=== PATIENT | male | born 1935 | race Caucasian/White ===

== ENCOUNTER 2018-03-14 14:58 | Inpatient (IN) ==
[2018-03-14] MEDS ORDERED: hydrALAZINE 20 MG/ML VIAL IV ONE (15:07)
[2018-03-14 15:48] LABS: Basophils # (Auto) 0.1 K/mcL (0.0-0.3); Basophils % (Auto) 0.6 % (0.0-2.0); Eosinophils # (Auto) 0.3 K/mcL (0.0-0.7); Eosinophils % (Auto) 2.9 % (0.0-7.0); Granulocytes % (Auto) 76.1 % (38.0-78.0); Lymphocytes # (Auto) 1.2 K/mcL (1.5-4.8); Lymphocytes % (Auto) 11.2 % (15.5-49.0); Mean Corpuscular HGB Conc 33.1 g/dL (31.0-36.0); Mean Corpuscular Hemoglobin 31.1 pg (26.0-34.0); Monocytes % (Auto) 9.2 % (1.0-12.0); Platelet Count 246 K/mcL (140-440); RBC 4.67 M/mcL (4.50-5.90); Red Cell Distribution Width 13.1 % (11.5-14.5)
[2018-03-14] MEDS ORDERED: SPIRONOLACTONE 25 MG TABLET PO ONE (16:04)
--- NOTE | 2018-03-14 16:04 | Emergency Department Note ---
General Adult HPI - General Chief complaint: Blood Pressure Problem Stated complaint: blood pressure problem Time Seen by Provider: 03/14/18 15:06 Source: patient Mode of arrival: ambulatory Limitations: no limitations - History of Present Illness HPI Narrative: 83-year-old male presents after being sent to the ER by his primary care provider for hypertension. He had blood pressures in Dr. Allison's office of 235/160. He denies any complaints. No headache. No change in vision. No chest pain or shortness of breath. No difficulty breathing. Patient states "I just want my medications changed to control my blood pressure ". States that he was on Norvasc for a few weeks which was helping control his blood pressure but then they had to take him off of the Norvasc about the middle of January due to pedal edema caused by the Norvasc. States since then he has been monitoring his blood pressure at home and is continued to rise and he needs better control of his blood pressure. He has had some kidney cysts in the past and there is question of whether or not his kidneys are contributing to hypertension. Dr. Allison would like us to get an ultrasound of the kidneys if possible. Associated symptoms: Denies: confusion, chest pain, cough, diaphoresis, fever/ chills, headaches, loss of appetite, malaise, nausea/vomiting, shortness of breath, syncope, weakness - Related Data Home Medications Medication Instructions Recorded Confirmed calcium carbonate 500 mg calcium 500 mg PO QDAY tab 05/13/15 03/14/18 (1,250 mg) tablet omega-3 fatty acids 300 mg capsule 600 mg PO QDAY 05/13/15 03/14/18 ferrous sulfate 325 mg (65 mg 325 mg PO QDAY 11/11/16 03/14/18 iron) tablet aspirin 81 mg tablet,delayed 81 mg PO .QOD tab 09/16/17 03/14/18 release Previous Rx's Medication Instructions Recorded levothyroxine 150 mcg tablet 150 mcg PO QDAY #90 tab 05/28/17 fexofenadine 180 mg tablet 180 mg PO QDAY #90 tab 10/07/17 simvastatin 5 mg tablet 5 mg PO QPM #90 tab 11/11/17 pantoprazole 40 mg tablet,delayed 40 mg PO QDAY #90 tab 12/03/17 release olmesartan 40 mg tablet 40 mg PO QDAY #90 tab 02/04/18 carvedilol 25 mg tablet 12.5 mg PO BID #90 tab 02/15/18 Allergies Allergy/AdvReac Type Severity Reaction Status Date / Time KEENAN Inhibitors AdvReac Unknown Unknown Verified 03/14/18 15:01 venom-honey bee AdvReac Unknown Unknown Verified 03/14/18 15:01 [bee venom (honey bee)] Review of Systems All systems ED: reviewed and negative except as stated. Past Medical History - Past Medical History [facility] Narrative: Medical History (Last Reviewed 02/04/18 @ 11:10 by Tyler Allison MD) Adenocarcinoma of transverse colon (Chronic) Anemia (Chronic) Urticaria (Resolved) Breast mass in male (Chronic) Vitreous degeneration (Chronic) Schatzki's ring (Chronic) Bursitis, subacromial (Resolved 11/13/14) PVD (peripheral vascular disease) (Chronic 06/01/13) Pseudophakia (Chronic) Hx of malignant neoplasm of prostate (Chronic) Hx of skin malignancy (Resolved) Osteoarthritis (Chronic) Onychomycosis (Chronic 06/01/13) Macular degeneration (Chronic) Lung nodule, solitary (Chronic) Leukocytosis (Chronic) Ischemic heart disease, chronic (Chronic) Injury, shoulder and upper arm (Resolved 10/17/07) Hypothyroidism (acquired) (Chronic) Hypocalcemia (Chronic) Hypertension, essential (Chronic) Hiatal hernia (Chronic) Hemoptysis (Resolved 12/31/12) Hematuria, microscopic (Chronic 12/14/13) Hearing loss (Chronic) Gastroesophageal reflux (Chronic) Benign gastric polyp (Chronic) Pneumonia (Resolved 08/28/13) Fatigue (Chronic) Dyspnea and respiratory abnormality (Chronic) Dysphagia (Chronic 01/05/13) Dupuytrens contracture (Chronic) Duodenitis without hemorrhage (Chronic) Diverticulum of bladder (Chronic) Genital disorder, male (Chronic) Chronic obstructive pulmonary disease (Chronic 07/21/11) Bronchitis (Chronic 01/08/11) Breast pain (Resolved) Bradycardia (Chronic) 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 urinary tract symptoms (Chronic 12/14/13) 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) Blepharitis (Chronic) Basal cell carcinoma of skin (Resolved) Aortic stenosis (Chronic 07/25/13) Colon adenocarcinoma (Chronic) Past Surgical History (Last Reviewed 02/04/18 @ 11:10 by Tyler Allison MD) Hx of thumb surgery (Resolved) History of thoracotomy (Resolved) History of prostate surgery (Resolved) Status post nasal surgery (Resolved) Hx of lymph node biopsy (Resolved) Hx of esophagogastroduodenoscopy (Resolved 01/05/13) Hx of colonoscopy (Resolved) Hx of cardiac catheterization (Resolved 07/04/13) Hx of cataract surgery (Resolved 06/01/12) History of bronchoscopy (Resolved 05/11/11) Hx of breast biopsy (Resolved) Hx of basal cell carcinoma excision (Resolved) Hx of aortic valve replacement (Resolved 07/25/13) Heart valve replaced (Resolved 07/25/13) - Social History smoking status: Never smoker Alcohol use: Reports: None Drug use: Reports: none Physical Exam Limitations: no limitations General appearance: alert, in no apparent distress Head: atraumatic, normocephalic, normal inspection Eye: Present: normal appearance. Absent: conjunctival injection ENT: normal exam, normal oropharynx, mucous membranes moist, normal external ear exam Neck: Present: normal inspection, trachea midline. Absent: tenderness, lymphadenopathy Chest: Present: normal inspection, symmetric chest wall rise Respiratory: Present: normal lung sounds bilaterally. Absent: respiratory distress, rales/crackles, accessory muscle use Cardiovascular: Present: regular rate, normal heart sounds, other (Hypertensive) Extremities: Present: normal inspection, normal capillary refill. Absent: pedal edema Neurological: Present: alert, oriented X3 Psychiatric: Present: normal affect, normal mood Skin: Present: warm, dry, intact, normal color Course Course Narrative: Patient continues to have hypertension despite multiple doses of IV medication and some oral Spironolactone. At 1850 but he could did call the transfer center at [facility] to see if we get this patient admitted as there was no beds available here. The hospitalist from [facility] to call back and agrees to accept the patient. However within minutes of that bed unexpectedly became available here at [facility]. Dr. Olvera, the hospitalist agrees to accept the patient here. Vital Signs Temperature 97.5 F 03/14/18 14:59 Pulse Rate 61 03/14/18 14:59 Respiratory Rate 20 03/14/18 14:59 Blood Pressure 248/111 03/14/18 14:59 Pulse Oximetry (%) 98 03/14/18 14:59 Temperature 97.5 F 03/14/18 14:59 Pulse Rate 80 03/14/18 18:21 Respiratory Rate 16 03/14/18 18:21 Blood Pressure 170/94 03/14/18 18:20 Pulse Oximetry (%) 97 03/14/18 18:21 Medical Decision Making - Lab Data Result diagrams: 03/14/18 15:17 03/14/18 15:17 Lab Results 03/14/18 03/14/18 03/14/18 Range/Units 15:17 15:17 15:17 WBC 10.8 (4.5-11.0) K/mcL RBC 4.67 (4.50-5.90) M/mcL Hgb 14.5 (13.5-16.5) g/dL Hct 43.9 (41.0-55.0) % MCV 94.0 (80.0-100.0) fL MCH 31.1 (26.0-34.0) pg MCHC 33.1 (31.0-36.0) g/dL RDW 13.1 (11.5-14.5) % Plt Count 246 (140-440) K/mcL MPV 8.1 (7.4-10.4) fL Gran % 76.1 (38.0-78.0) % Lymph % (Auto) 11.2 L (15.5-49.0) % Nobles % (Auto) 9.2 (1.0-12.0) % Eos % (Auto) 2.9 (0.0-7.0) % Baso % (Auto) 0.6 (0.0-2.0) % Gran # 8.2 H (1.8-8.0) K/mcL Lymph # (Auto) 1.2 L (1.5-4.8) K/mcL Nobles # (Auto) 1.0 H (0.1-0.9) K/mcL Eos # (Auto) 0.3 (0.0-0.7) K/mcL Baso # (Auto) 0.1 (0.0-0.3) K/mcL Sodium 143 (133-145) mmol/L Potassium 4.3 (3.3-5.1) mmol/L Chloride 101 (96-108) mmol/L Carbon Dioxide 26 (22-30) mmol/L Anion Gap 16.0 (8-16) BUN 18 (8-23) mg/dl Creatinine 1.4 H (0.7-1.2) mg/dl GFR Calculation 46 Glucose 87 (70-105) mg/dL Calcium 9.4 (8.6-10.4) mg/dl Total Bilirubin 0.4 (0.0-1.0) mg/dL AST 18 (0-37) U/l ALT 12 (0-40) U/l Alkaline Phosphatase 62 (39-117) U/L Troponin T < 0.01 (0-0.03) ng/ml Total Protein 7.1 (5.9-8.4) gm/dL Albumin 4.4 (3.2-5.2) gm/dL Globulin 2.7 (2.2-3.7) gm/dL Albumin/Globulin Ratio 1.6 (1.0-2.3) Urine Color Urine Appearance Urine pH (5.0-9.0) Ur Specific [place] (1.000-1.035) Urine Protein (NEG) mg/dL Urine Glucose (UA) (NEG) mg/dL Urine Ketones (NEG) mg/dL Urine Occult Blood (<0.03) mg/dL Urine Nitrate (NEG) Urine Bilirubin (NEG) mg/dL Urine Urobilinogen (NEG) mg/dL Ur Leukocyte Esterase (NEG) /uL Urine RBC (0-1) /hpf Urine WBC (0-4) /hpf Ur Squamous Epith Cells (0-4) /hpf Urine Bacteria (0) /hpf Ur Culture Indicated? 03/14/18 Range/Units 15:50 WBC (4.5-11.0) K/mcL RBC (4.50-5.90) M/mcL Hgb (13.5-16.5) g/dL Hct (41.0-55.0) % MCV (80.0-100.0) fL MCH (26.0-34.0) pg MCHC (31.0-36.0) g/dL RDW (11.5-14.5) % Plt Count (140-440) K/mcL MPV (7.4-10.4) fL Gran % (38.0-78.0) % Lymph % (Auto) (15.5-49.0) % Nobles % (Auto) (1.0-12.0) % Eos % (Auto) (0.0-7.0) % Baso % (Auto) (0.0-2.0) % Gran # (1.8-8.0) K/mcL Lymph # (Auto) (1.5-4.8) K/mcL Nobles # (Auto) (0.1-0.9) K/mcL Eos # (Auto) (0.0-0.7) K/mcL Baso # (Auto) (0.0-0.3) K/mcL Sodium (133-145) mmol/L Potassium (3.3-5.1) mmol/L Chloride (96-108) mmol/L Carbon Dioxide (22-30) mmol/L Anion Gap (8-16) BUN (8-23) mg/dl Creatinine (0.7-1.2) mg/dl GFR Calculation Glucose (70-105) mg/dL Calcium (8.6-10.4) mg/dl Total Bilirubin (0.0-1.0) mg/dL AST (0-37) U/l ALT (0-40) U/l Alkaline Phosphatase (39-117) U/L Troponin T (0-0.03) ng/ml Total Protein (5.9-8.4) gm/dL Albumin (3.2-5.2) gm/dL Globulin (2.2-3.7) gm/dL Albumin/Globulin Ratio (1.0-2.3) Urine Color Straw Urine Appearance Clear Urine pH 7.0 (5.0-9.0) Ur Specific [place] 1.010 (1.000-1.035) Urine Protein 30 A (NEG) mg/dL Urine Glucose (UA) Negative (NEG) mg/dL Urine Ketones Neg (NEG) mg/dL Urine Occult Blood 0.2 A (<0.03) mg/dL Urine Nitrate Neg (NEG) Urine Bilirubin Neg (NEG) mg/dL Urine Urobilinogen Neg (NEG) mg/dL Ur Leukocyte Esterase Neg (NEG) /uL Urine RBC 24 H (0-1) /hpf Urine WBC < 1 (0-4) /hpf Ur Squamous Epith Cells < 1 (0-4) /hpf Urine Bacteria 0 (0) /hpf Ur Culture Indicated? No Disposition Pt seen by SEALING AND CANCELING MACHINE OPERATOR/PA only: No Clinical Impression: Hypertensive urgency Disposition: Xfer As Inpt (TS) Condition: Fair Referrals: Tyler Allison MD [Primary Care Provider] - Time of Disposition: 19:50
--- NOTE | 2018-03-14 16:12 | Cat Scan Report ---
CLINICAL INFORMATION: Severe hypertension COMPARISON: None. TECHNIQUE: Axial noncontrast-enhanced images through the brain. FINDINGS: On axial image 25/64 there is increased density in the right thalamus as compared to the left. This is identified only on this image. This is probably artifactual. Short-term follow-up examination is recommended. Cerebral hemispheres are otherwise negative. No other focal intra-axial attenuation abnormality or localized mass effect. There is mild age-appropriate atrophy. Periventricular white matter is unremarkable. Brainstem and cerebellum are negative. No focal intra-axial abnormalities. No extra-axial, intracranial abnormality. No subdural hematoma. No subarachnoid hemorrhage. Basilar cisterns are normal. No calvarial lesions. No lytic lesion. No fracture. Temporal bones are negative. IMPRESSION: 1. Increased density in the right thalamus seen only on one image. Appearance is most consistent with artifact. Short-term follow-up recommended 2. Otherwise negative examination The exam was performed using radiation dose optimization techniques including, but not limited to, automated exposure control, adjustment of the mA and/or kV according to patient size and use of iterative reconstruction technique. Interpreted and Authenticated by: Harris Read 03/14/18
[2018-03-14 16:32] LABS: ALT/SGPT 12 U/l (0-40); Albumin 4.4 gm/dL (3.2-5.2); Albumin/Globulin Ratio 1.6 (1.0-2.3); Alkaline Phosphatase 62 U/L (39-117); Blood Urea Nitrogen 18 mg/dl (8-23)
[2018-03-14 16:51] LABS: Appearance,Urine CLEAR; Bacteria,Urine 0 /hpf (0); Bilirubin,Urine NEG (NEG); Color,Urine STRAW; Glucose,Urine (UA) NEGATIVE (NEG); Leukocyte Esterase,Urine NEG /uL (NEG); Protein,Urine 30 mg/dL (NEG); Urine Blood 0.2 mg/dL (<0.03); Urine RBC 24 /hpf (0-1); Urine Squamous Epithelial Cell < 1 /hpf (0-4); Urine WBC < 1 /hpf (0-4); Urobilinogen,Urine NEG (NEG)
--- NOTE | 2018-03-14 16:57 | Ultrasound Report ---
CLINICAL INFORMATION: Hypertension TECHNIQUE: Grayscale and color flow Doppler spectral imaging COMPARISON: Renal ultrasound dated 05/26/2016. CT scan dated 06/21/2015 FINDINGS: Negative gallbladder. No cholelithiasis. No gallbladder wall thickening. No pericholecystic fluid. No dilated bile ducts. Common bile duct measures 5 mm. Liver measures approximately 12.6 cm. Liver contour is slightly irregular. No focal mass. There is no ascites. Spleen is negative. No splenomegaly. Normal hepatopedal portal venous flow. Visualized portions of the pancreas are negative. The entire gland is not imaged. Abdominal aorta and inferior vena cava are negative. Right kidney measures 14.4 x 6.8 x 7.4 cm. There is a large right renal cyst. This measures 11.7 x 8.7 x 5.4 cm. There are smaller right renal cyst. No solid mass. No hydronephrosis. Left kidney measures 14.9 x 6.5 x 6 x 1 cm. There is a dominant simple cyst. This measures 12.5 x 14.0 x 13.6 cm. There are smaller simple cyst. No solid mass. No hydronephrosis. These large renal cysts are unchanged. IMPRESSION: 1. Large bilateral simple renal cysts. No solid mass. No hydronephrosis 2. No interval change since 05/26/2016 Interpreted and Authenticated by: Harris Read 03/14/18
[2018-03-14] MEDS ORDERED: LABETALOL HCL 20 MG/4 ML SYRINGE IV ONE (17:52)
[2018-03-14] MEDS ORDERED: niCARdipine 25 MG in 0.9 % SODIUM CHLORIDE 240 ML IV SCH (19:45)
--- NOTE | 2018-03-14 20:39 | Internal Med History&Physical ---
Medical - H&P: HPI Patient information: Note initiated : 03/14/18 at 8:35 pm Service Date, if different from initiated Date: [] Patient: Juan Valdez a 83 y/o M admitted on for blood pressure problem. Chief Complaint: [] History of present illness: Mr. Valdez is a 83 year old M With history of hypertension who presents from Dr. Allison's office for hypertension. Patient states that his blood pressure medications were adjusted in January. He states that he was on Norvasc Coreg and I believe valsartan. Patient is a poor historian as to his medications but it sounds like he is on Norvasc 5 mg that was causing pedal edema. Thus the Norvasc was stopped his Coreg was increased to 12.5 twice daily sounds like he was only taking it once a day prior to that and his valsartan was switched to olmesartan. He has been measuring his blood pressure since then had a follow-up appointment Dr. Allison today he was found to have systolics of 235 with a diastolic of 160 in the office. Patient states when he was on the Norvasc in January his blood pressure was on the lower side and he has been having issues ever since the change. He does note that his pedal edema has gone away since stopping the Norvasc. He denies any headache visual changes dizziness lightheadedness shortness of breath or chest pain. He is asymptomatic in the ER with blood pressures in the ER of 248/111 on presentation he received oral and IV labetalol including 20 mg of IV labetalol he received IV hydralazine and Spironolactone with temporary improvement and then increase in blood pressure again with systolic of 200. And then was put on nicardipine drip with improvement. Urinalysis just shows protein. Renal ultrasound bilaterally to show mark renal cyst. A CT brain was unremarkable. Review of Systems: denies headache/fever/chills/nausea/vomiting/chest or abdominal pain/cough/ dyspnea/diarrhea. Remaining 10 point review of systems reviewed negative Medical - H&P: PMH Medical history: Medical History (Last Reviewed 02/04/18 @ 11:10 by Tyler Allison MD) Adenocarcinoma of transverse colon (Chronic) Anemia (Chronic) Urticaria (Resolved) Breast mass in male (Chronic) Vitreous degeneration (Chronic) Schatzki's ring (Chronic) Bursitis, subacromial (Resolved 11/13/14) PVD (peripheral vascular disease) (Chronic 06/01/13) Pseudophakia (Chronic) Hx of malignant neoplasm of prostate (Chronic) Hx of skin malignancy (Resolved) Osteoarthritis (Chronic) Onychomycosis (Chronic 06/01/13) Macular degeneration (Chronic) Lung nodule, solitary (Chronic) Leukocytosis (Chronic) Ischemic heart disease, chronic (Chronic) Injury, shoulder and upper arm (Resolved 10/17/07) Hypothyroidism (acquired) (Chronic) Hypocalcemia (Chronic) Hypertension, essential (Chronic) Hiatal hernia (Chronic) Hemoptysis (Resolved 12/31/12) Hematuria, microscopic (Chronic 12/14/13) Hearing loss (Chronic) Gastroesophageal reflux (Chronic) Benign gastric polyp (Chronic) Pneumonia (Resolved 08/28/13) Fatigue (Chronic) Dyspnea and respiratory abnormality (Chronic) Dysphagia (Chronic 01/05/13) Dupuytrens contracture (Chronic) Duodenitis without hemorrhage (Chronic) Diverticulum of bladder (Chronic) Genital disorder, male (Chronic) Chronic obstructive pulmonary disease (Chronic 07/21/11) Bronchitis (Chronic 01/08/11) Breast pain (Resolved) Bradycardia (Chronic) 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 urinary tract symptoms (Chronic 12/14/13) 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) Blepharitis (Chronic) Basal cell carcinoma of skin (Resolved) Aortic stenosis (Chronic 07/25/13) Colon adenocarcinoma (Chronic) Past Surgical History (Last Reviewed 02/04/18 @ 11:10 by Tyler Allison MD) Hx of thumb surgery (Resolved) History of thoracotomy (Resolved) History of prostate surgery (Resolved) Status post nasal surgery (Resolved) Hx of lymph node biopsy (Resolved) Hx of esophagogastroduodenoscopy (Resolved 01/05/13) Hx of colonoscopy (Resolved) Hx of cardiac catheterization (Resolved 07/04/13) Hx of cataract surgery (Resolved 06/01/12) History of bronchoscopy (Resolved 05/11/11) Hx of breast biopsy (Resolved) Hx of basal cell carcinoma excision (Resolved) Hx of aortic valve replacement (Resolved 07/25/13) Heart valve replaced (Resolved 07/25/13) Family History (Last Reviewed 02/04/18 @ 11:10 by Tyler Allison MD) Father Essential hypertension Cardiac disease, Onset Age: 79 Mother of unknown cause, Onset Age: 79 Social History (Last Updated 02/11/18 @ 15:47 by Tyler Allison MD) Denies alcohol or smoking ambulates independent of any assist devices. Lives at home by himself Medical - H&P: Meds Home Medications Medication Instructions Recorded Confirmed Type calcium carbonate 500 mg calcium 500 mg PO QDAY tab 05/13/15 03/14/18 History (1,250 mg) tablet omega-3 fatty acids 300 mg capsule 600 mg PO QDAY 05/13/15 03/14/18 History ferrous sulfate 325 mg (65 mg 325 mg PO QDAY 11/11/16 03/14/18 History iron) tablet levothyroxine 150 mcg tablet 150 mcg PO QDAY #90 tab 05/28/17 03/14/18 Rx aspirin 81 mg tablet,delayed 81 mg PO .QOD tab 09/16/17 03/14/18 History release fexofenadine 180 mg tablet 180 mg PO QDAY #90 tab 10/07/17 03/14/18 Rx simvastatin 5 mg tablet 5 mg PO QPM #90 tab 11/11/17 03/14/18 Rx pantoprazole 40 mg tablet,delayed 40 mg PO QDAY #90 tab 12/03/17 03/14/18 Rx release olmesartan 40 mg tablet 40 mg PO QDAY #90 tab 02/04/18 03/14/18 Rx carvedilol 25 mg tablet 12.5 mg PO BID #90 tab 02/15/18 03/14/18 Rx Allergies Allergy/AdvReac Type Severity Reaction Status Date / Time KEENAN Inhibitors AdvReac Unknown Unknown Verified 03/14/18 15:01 venom-honey bee AdvReac Unknown Unknown Verified 03/14/18 15:01 [bee venom (honey bee)] Medical - H&P: Exam - Constitutional Vitals: Temp Pulse Resp BP Pulse Ox 97.5 F 80 16 170/94 97 03/14/18 14:59 03/14/18 18:21 03/14/18 18:21 03/14/18 18:20 03/14/18 18:21 Exam: General: Alert, Awake, No acute Distress HEENT: EOMI, neck supple, normocephalic atraumatic, pupils equal round reactive light CV: RRR, 2/6 SM, normal s1/s2 Pulm: Clear b/l, no wheezing/rhonchi/rales Abd: soft, nontender, +BS x4 Ext: no clubbing/cyanosis/edema Neuro: Alert, no focal deficits, moves all extremities Skin: warm/dry Medical - H&P: Reslt - Labs CBC & Chem 7: 03/14/18 15:17 03/14/18 15:17 Labs: Short CBC 03/14/18 Range/Units 15:17 WBC 10.8 (4.5-11.0) K/mcL Hgb 14.5 (13.5-16.5) g/dL Hct 43.9 (41.0-55.0) % Plt Count 246 (140-440) K/mcL BMP 03/14/18 15:17 Sodium 143 Potassium 4.3 Chloride 101 Carbon Dioxide 26 BUN 18 Creatinine 1.4 H Glucose 87 Calcium 9.4 Cardiac Enzymes 03/14/18 Range/Units 15:17 Troponin T < 0.01 (0-0.03) ng/ml Liver Function 03/14/18 Range/Units 15:17 Total Bilirubin 0.4 (0.0-1.0) mg/dL AST 18 (0-37) U/l ALT 12 (0-40) U/l Alkaline Phosphatase 62 (39-117) U/L Albumin 4.4 (3.2-5.2) gm/dL Urine 03/14/18 Range/Units 15:50 Urine Color Straw Urine Appearance Clear Urine pH 7.0 (5.0-9.0) Ur Specific [place] 1.010 (1.000-1.035) Urine Protein 30 A (NEG) mg/dL Urine Glucose (UA) Negative (NEG) mg/dL Medical - H&P: A/P - Narrative A/P Narrative: A: *Hypertensive urgency (h/o HTN): With significantly elevated blood pressure surprisingly asymptomatic at this time -MAP on admit 150 -Since medication adjustment has been labile *History of CKD stage III (base ~Cr 1.4): Follows with Dr. Bowman *Hypothyroidism *GERD *Aortic valve replacement with bovine valve: P: -Nicardipine drip started, will titrate to map of 100 at this point -Restart his Coreg and olmesartan, clarified medications, and adjust blood pressure medications with additions as necessary -TSH pending, renin/aldosterone/a.m. cortisol pending -We will also check renal artery ultrasound -Monitor closely for any complications - - -ppx: lovenox/home ppi
[2018-03-14 20:55] LABS: Free T4 (Free Thyroxine) 1.52 ng/dl (0.7-1.7)
[2018-03-14] MEDS ORDERED: ONDANSETRON 4 MG/2 ML VIAL IV PRN (21:12)
[2018-03-14] MEDS: niCARdipine 25 MG in 0.9 % SODIUM CHLORIDE 240 ML IV SCH (21:15)
[2018-03-14] MEDS: ACETAMINOPHEN 325 MG TABLET PO PRN (22:51)
[2018-03-14] MEDS: 0.9 % SODIUM CHLORIDE 10 ML SYRINGE IV SCH (22:59)
--- NOTE | 2018-03-14 22:59 | Emergency Department Note ---
ED Note Addendum Note Addendum: I saw this patient with Jordyn SCHERER. I agree with her evaluation management documentation. In particular this patient was sent over from Dr. Allison's office for asymptomatic hypertensive urgency. Workup essentially negative here but blood pressures were very difficult to control despite trying hydralazine labetalol and spironolactone. Recommended admission for further control of his blood pressure with IV medicines
[2018-03-15] MEDS: niCARdipine 25 MG in 0.9 % SODIUM CHLORIDE 240 ML IV SCH ×5 (05:01→22:00)
[2018-03-15] MEDS: 0.9 % SODIUM CHLORIDE 10 ML SYRINGE IV SCH ×3 (05:39→22:00)
--- NOTE | 2018-03-15 07:22 | Internal Med Progress Note ---
Medical - PN: Subj Patient information: Note initiated : 03/15/18 at 7:18 am Service Date, if different from initiated Date: [] Patient: Juan Valdez a 83 y/o M admitted on 03/14/18 for blood pressure problem. Chief Complaint: [] Interval history: Mr. Valdez is a 83 year old M With history of hypertension who presents from Dr. Allison's office for hypertension. Patient states that his blood pressure medications were adjusted in January. He states that he was on Norvasc Coreg and I believe valsartan. Patient is a poor historian as to his medications but it sounds like he is on Norvasc 5 mg that was causing pedal edema. Thus the Norvasc was stopped his Coreg was increased to 12.5 twice daily sounds like he was only taking it once a day prior to that and his valsartan was switched to olmesartan. He has been measuring his blood pressure since then had a follow-up appointment Dr. Allison today he was found to have systolics of 235 with a diastolic of 160 in the office. Patient states when he was on the Norvasc in January his blood pressure was on the lower side and he has been having issues ever since the change. He does note that his pedal edema has gone away since stopping the Norvasc. He denies any headache visual changes dizziness lightheadedness shortness of breath or chest pain. He is asymptomatic in the ER with blood pressures in the ER of 248/111 on presentation he received oral and IV labetalol including 20 mg of IV labetalol he received IV hydralazine and Spironolactone with temporary improvement and then increase in blood pressure again with systolic of 200. And then was put on nicardipine drip with improvement. Urinalysis just shows protein. Renal ultrasound bilaterally to show mark renal cyst. A CT brain was unremarkable. 03/15 Poor sleep because of all the lines and wires attached to him. But did get a few hours early this morning. Otherwise no new complaints. Nicardipine drip was stopped earlier this morning with now blood pressure is creeping up to the systolics 170. Review of Systems: denies headache/visual changes/fever/chills/nausea/vomiting/chest or abdominal pain/cough/dyspnea/diarrhea. Otherwise see above. - Constitutional Vitals: Vital Signs Temp Pulse Resp BP Pulse Ox 98.3 F 61 15 137/79 96 03/15/18 06:01 03/15/18 06:01 03/15/18 06:01 03/15/18 06:01 03/15/18 06:01 Period Temp Pulse Resp BP Sys/[place] Pulse Ox Last 24 Hr 97.5 F-100.0 F 57-92 13-40 110-257/54-129 92-100 Intake and Output 03/14/18 03/15/18 03/15/18 21:59 05:59 13:59 Intake Total 372 / 372 348 / 348 Output Total 600 / 600 450 / 450 Balance -228 / -228 -102 / -102 Weight 67.812 kg Intake & Output: Intake & Output 03/14/18 03/15/18 03/15/18 21:59 05:59 13:59 Intake Total 372 / 372 348 / 348 Output Total 600 / 600 450 / 450 Balance -228 / -228 -102 / -102 Weight 67.812 kg Intake: IV 108 / 108 Cardene 25 MG In Sodium 108 / 108 Chloride 0.9% 240 ml @ 5 MG/HR 50 mls/hr IV Q5H [facility] Rx#: [id number] Oral 360 / 360 240 / 240 Output: Void Amount 600 / 600 450 / 450 Other: Meal SAndwhich, SHerbert, crackers. Percent of Meal Consumed 100% Feeding Ability Independent # Voids 1 Exam: General: Alert, Awake, No acute Distress HEENT: EOMI, neck supple, CV: RRR, 2/6 SM, normal s1/s2 Pulm: Clear b/l, no wheezing/rhonchi/rales Abd: soft, nontender, +BS x4 Ext: no clubbing/cyanosis/edema Neuro: Alert, no focal deficits, moves all extremities Skin: warm/dry Medical - PN: Obj Da - Labs CBC & Chem 7: 03/15/18 03:45 03/15/18 03:45 Labs: Abnormal Lab Results 03/14/18 03/14/18 03/14/18 15:50 15:17 15:17 Lymph % (Auto) 11.2 L Gran # 8.2 H Lymph # (Auto) 1.2 L [place] # (Auto) 1.0 H Creatinine 1.4 H Urine Protein 30 A Urine Occult Blood 0.2 A Urine RBC 24 H Meds: Medications Acetaminophen (Tylenol) 650 mg PO Q6HP PRN PRN Reason: PAIN/FEVER > 101 Last Admin: 03/14/18 22:51 Dose: 650 mg Aspirin (Aspirin) 81 mg PO Q48H [facility] Calcium Carbonate/Glycine (Oscal) 500 mg PO QDAY [facility] Carvedilol (Coreg) 12.5 mg PO BIDCC [facility] Enoxaparin Sodium (Lovenox) 40 mg SQ DAILY [facility] Nicardipine HCl 25 mg/ Sodium (Chloride) 250 mls @ 50 mls/hr IV Q5H [facility]; Protocol Last Admin: 03/15/18 05:01 Dose: Not Given Levothyroxine Sodium (Synthroid) 150 mcg PO QAMAC [facility] Olmesartan (Benicar) 40 mg PO DAILY [facility] Ondansetron HCl (Zofran) 4 mg IV Q4HP PRN PRN Reason: Nausea And Vomiting Pantoprazole Sodium (Protonix) 40 mg PO QAMAC [facility] Sodium Chloride (Saline Flush) 10 ml IV Q8 [facility] Last Admin: 03/15/18 05:39 Dose: 10 ml Medical - PN: A/P - Time Spent With Patient Total time spent is greater than 50% in coordination of care (as documented) at patient's floor/unit and/or counseling patient: - Narrative A/P Narrative: A: *Hypertensive urgency (h/o HTN): With significantly elevated blood pressure surprisingly asymptomatic on admit -MAP on admit 150 -Since medication adjustment several months ago his BP has been labile -TSH/cortisol ok *History of CKD stage III (base ~Cr 1.4-1.5): Follows with Dr. Bowman *Hypothyroidism *GERD *Aortic valve replacement with bovine valve: P: -Nicardipine drip started,titrate to map of 100 at this point, weaned off this morning. gradually bring down BP -Restarted home Coreg and olmesartan, clarify medications, and adjust blood pressure medications with additions as necessary -renin/aldosterone pending -We will also check renal artery ultrasound -Monitor closely for any complications - -ppx: lovenox/home ppi Medical - PN: Qual - VTE Deep Vein Thrombosis/Pulmonary Embolism Present on Admission: No
[2018-03-15 07:47] LABS: Basophils # (Auto) 0 K/mcL (0.0-0.3); Basophils % (Auto) 0.2 % (0.0-2.0); Eosinophils # (Auto) 0 K/mcL (0.0-0.7); Eosinophils % (Auto) 0.3 % (0.0-7.0); Granulocytes % (Auto) 83.3 % (38.0-78.0); Mean Cell Volume 93.2 fL (80.0-100.0); Mean Corpuscular HGB Conc 33.1 g/dL (31.0-36.0); Mean Corpuscular Hemoglobin 30.9 pg (26.0-34.0); Monocytes # (Auto) 1.3 K/mcL (0.1-0.9); Monocytes % (Auto) 9.2 % (1.0-12.0); Platelet Count 246 K/mcL (140-440); RBC 4.29 M/mcL (4.50-5.90); Red Cell Distribution Width 13.6 % (11.5-14.5)
[2018-03-15] MEDS ORDERED: CARVEDILOL 12.5 MG TABLET PO SCH (08:00)
[2018-03-15] MEDS ORDERED: LABETALOL 5 MG/ML ML IV PRN (08:10)
[2018-03-15 08:33] LABS: Cortisol,AM 7.4 ug/dl (6.2-19.4)
[2018-03-15 08:34] LABS: ALT/SGPT 10 U/l (0-40); Albumin 3.7 gm/dL (3.2-5.2); Albumin/Globulin Ratio 1.6 (1.0-2.3); Alkaline Phosphatase 52 U/L (39-117); Bilirubin,Direct < 0.2 mg/dL (0.0-0.3); Blood Urea Nitrogen 24 mg/dl (8-23); Gamma Glutamyl Transpeptidase 15 U/L (8-61); Uric Acid 7.2 mg/dL (2.5-8.0)
[2018-03-15] MEDS ORDERED: ASPIRIN 81 MG TAB.CHEW PO SCH (09:00)
[2018-03-15] MEDS: LABETALOL 5 MG/ML ML IV PRN ×4 (09:10→21:51)
[2018-03-15] MEDS: PANTOPRAZOLE 40 MG TABLET PO SCH (10:35)
[2018-03-15] MEDS: ENOXAPARIN 40 MG/0.4 ML SYRINGE SQ SCH (10:35)
[2018-03-15] MEDS: OLMESARTAN MEDOXOMIL 20 MG TABLET PO SCH (10:35)
[2018-03-15] MEDS: CALCIUM (OYSTER SHELL) 500 MG TABLET PO SCH (10:35)
[2018-03-15] MEDS: LEVOTHYROXINE 150 MCG TABLET PO SCH (10:36)
--- NOTE | 2018-03-15 12:09 | Ultrasound Report ---
CLINICAL INFORMATION: Hypertension TECHNIQUE: Grayscale and color flow Doppler spectral imaging COMPARISON: Renal ultrasound dated 03/14/2018. FINDINGS: There are large bilateral renal cysts. No solid mass. No hydronephrosis. No perinephric abnormality. Sonographic appearance of the kidneys is unchanged since 03/14/2018. Left renal artery is abnormal. There is velocity elevation in the proximal segment with maximum systolic flow velocity of 220 cm/s. Mid abdominal flow velocity measured 89 cm/s. Findings are consistent with greater than 50% diameter renal artery stenosis. Left renal resistive indices measure 0.70-0.72. These are slightly elevated which probably indicates medical renal disease. Right renal artery is negative. No significant velocity elevation. No right renal artery stenosis. Right renal resistive indices equal 0.66-0.76. IMPRESSION: Elevated flow velocity in the proximal left renal artery consistent with hemodynamically significant stenosis. Interpreted and Authenticated by: Harris Read 03/15/18
[2018-03-15 14:42] LABS: Band Neutrophils % 2 % (0-10); Eosinophils % (Manual) 1 % (0-7); Lymphocytes % 13 % (15-49); Monocytes % (Manual) 9 % (1-12); Platelet Estimate NORMAL (NORMAL); RBC Morphology NORMAL (NORMAL); Segmented Neutrophils % 75 % (38-78)
[2018-03-15] MEDS: CARVEDILOL 12.5 MG TABLET PO SCH ×2 (17:28→21:52)
[2018-03-15] MEDS: ACETAMINOPHEN 325 MG TABLET PO PRN (22:07)
[2018-03-16] MEDS: niCARdipine 25 MG in 0.9 % SODIUM CHLORIDE 240 ML IV SCH ×2 (02:01→06:25)
[2018-03-16] MEDS: 0.9 % SODIUM CHLORIDE 10 ML SYRINGE IV SCH ×2 (06:02→20:39)
[2018-03-16 06:58] LABS: Mean Cell Volume 93.6 fL (80.0-100.0); Mean Corpuscular HGB Conc 33.4 g/dL (31.0-36.0); Mean Corpuscular Hemoglobin 31.3 pg (26.0-34.0); Platelet Count 219 K/mcL (140-440); RBC 4.01 M/mcL (4.50-5.90); Red Cell Distribution Width 13.6 % (11.5-14.5)
--- NOTE | 2018-03-16 07:15 | Internal Med Progress Note ---
Medical - PN: Subj Patient information: Note initiated : 03/16/18 at 7:11 am Service Date, if different from initiated Date: [] Patient: Juan Valdez a 83 y/o M admitted on 03/14/18 for blood pressure problem. Chief Complaint: [] Interval history: Mr. Valdez is a 83 year old M With history of hypertension who presents from Dr. Allison's office for hypertension. Patient states that his blood pressure medications were adjusted in January. He states that he was on Norvasc Coreg and I believe valsartan. Patient is a poor historian as to his medications but it sounds like he is on Norvasc 5 mg that was causing pedal edema. Thus the Norvasc was stopped his Coreg was increased to 12.5 twice daily sounds like he was only taking it once a day prior to that and his valsartan was switched to olmesartan. He has been measuring his blood pressure since then had a follow-up appointment Dr. Allison today he was found to have systolics of 235 with a diastolic of 160 in the office. Patient states when he was on the Norvasc in January his blood pressure was on the lower side and he has been having issues ever since the change. He does note that his pedal edema has gone away since stopping the Norvasc. He denies any headache visual changes dizziness lightheadedness shortness of breath or chest pain. He is asymptomatic in the ER with blood pressures in the ER of 248/111 on presentation he received oral and IV labetalol including 20 mg of IV labetalol he received IV hydralazine and Spironolactone with temporary improvement and then increase in blood pressure again with systolic of 200. And then was put on nicardipine drip with improvement. Urinalysis just shows protein. Renal ultrasound bilaterally to show mark renal cyst. A CT brain was unremarkable. 03/15 Poor sleep because of all the lines and wires attached to him. But did get a few hours early this morning. Otherwise no new complaints. Nicardipine drip was stopped earlier this morning with now blood pressure is creeping up to the systolics 170. 03/16 Slept better last night. No new complaints no overnight events no as needed blood pressure medication since shift change yesterday. Review of Systems: denies headache/visual changes/fever/chills/nausea/vomiting/chest or abdominal pain/cough/dyspnea/diarrhea. Otherwise see above. - Constitutional Vitals: Vital Signs Temp Pulse Resp BP Pulse Ox 98.5 F 64 15 134/68 95 03/16/18 04:01 03/15/18 20:00 03/16/18 06:01 03/16/18 06:01 03/16/18 06:01 Period Temp Pulse Resp BP Sys/C[place]ona Pulse Ox Last 24 Hr 98.0 F-98.6 F 64-65 10-22 100-189/53-108 93-99 Intake and Output 03/15/18 03/16/18 03/16/18 21:59 05:59 13:59 Intake Total 240 / 240 720 / 720 Output Total 575 / 575 750 / 750 Balance -335 / -335 -30 / -30 Weight 68.901 kg Intake & Output: Intake & Output 03/15/18 03/16/18 03/16/18 21:59 05:59 13:59 Intake Total 240 / 240 720 / 720 Output Total 575 / 575 750 / 750 Balance -335 / -335 -30 / -30 Weight 68.901 kg Intake: Oral 240 / 240 720 / 720 Output: Void Amount 575 / 575 750 / 750 Other: Meal soup and crackers Percent of Meal Consumed 75% Feeding Ability Independent Urine Appearance Clear Urine Color Bright Yellow Urine Odor Normal Stool Size Moderate Stool Color Faria Stool Consistency Soft # Voids 1 # Bowel Movements 1 Exam: General: Alert, Awake, No acute Distress HEENT: EOMI, neck supple, CV: RRR, 2/6 SM, normal s1/s2 Pulm: Clear b/l, no wheezing/rhonchi/rales Abd: soft, nontender, +BS x4 Ext: no clubbing/cyanosis/edema Neuro: Alert, no focal deficits, moves all extremities Skin: warm/dry Medical - PN: Obj Da - Labs CBC & Chem 7: 03/16/18 03:50 03/16/18 03:50 Labs: Abnormal Lab Results 03/16/18 03/15/18 03/15/18 03:50 03:45 03:45 WBC 11.1 H RBC 4.01 L Hgb 12.5 L Hct 37.5 L Gran % Lymph % (Auto) Gran # Lymph # (Auto) [place] # (Auto) Lymphocytes % 13 L Nucleated RBCs 1 H BUN 24 H Creatinine 1.6 H Urine Protein Urine Occult Blood Urine RBC 03/15/18 03/14/18 03/14/18 03:45 15:50 15:17 WBC 13.8 H RBC 4.29 L Hgb 13.3 L Hct 40.0 L Gran % 83.3 H Lymph % (Auto) 7.0 L Gran # 11.5 H Lymph # (Auto) 1.0 L [place] # (Auto) 1.3 H Lymphocytes % Nucleated RBCs BUN Creatinine 1.4 H Urine Protein 30 A Urine Occult Blood 0.2 A Urine RBC 24 H 03/14/18 15:17 WBC RBC Hgb Hct Gran % Lymph % (Auto) 11.2 L Gran # 8.2 H Lymph # (Auto) 1.2 L [place] # (Auto) 1.0 H Lymphocytes % Nucleated RBCs BUN Creatinine Urine Protein Urine Occult Blood Urine RBC Meds: Medications Acetaminophen (Tylenol) 650 mg PO Q6HP PRN PRN Reason: PAIN/FEVER > 101 Last Admin: 03/15/18 22:07 Dose: 650 mg Aspirin (Aspirin) 81 mg PO Q48H [facility] Last Admin: 03/15/18 10:35 Dose: 81 mg Calcium Carbonate/Glycine (Oscal) 500 mg PO QDAY [facility] Last Admin: 03/15/18 10:35 Dose: 500 mg Carvedilol (Coreg) 18.75 mg PO BIDCC [facility] Last Admin: 03/15/18 21:52 Dose: 18.75 mg Enoxaparin Sodium (Lovenox) 40 mg SQ DAILY [facility] Last Admin: 03/15/18 10:35 Dose: 40 mg Nicardipine HCl 25 mg/ Sodium (Chloride) 250 mls @ 50 mls/hr IV Q5H [facility]; Protocol Last Admin: 03/16/18 06:25 Dose: Not Given Labetalol HCl (Trandate) 0 mg IV Q2HP PRN PRN Reason: Hypertension Last Admin: 03/15/18 21:51 Dose: 20 mg Levothyroxine Sodium (Synthroid) 150 mcg PO QAMAC [facility] Last Admin: 03/15/18 10:36 Dose: 150 mcg Olmesartan (Benicar) 40 mg PO DAILY [facility] Last Admin: 03/15/18 10:35 Dose: 40 mg Ondansetron HCl (Zofran) 4 mg IV Q4HP PRN PRN Reason: Nausea And Vomiting Pantoprazole Sodium (Protonix) 40 mg PO QAMAC [facility] Last Admin: 03/15/18 10:35 Dose: 40 mg Sodium Chloride (Saline Flush) 10 ml IV Q8 [facility] Last Admin: 03/16/18 06:02 Dose: 10 ml Medical - PN: A/P - Time Spent With Patient Total time spent is greater than 50% in coordination of care (as documented) at patient's floor/unit and/or counseling patient: - Narrative A/P Narrative: A: *Hypertensive urgency (h/o HTN): With significantly elevated blood pressure surprisingly asymptomatic on admit -MAP on admit 150 -Since medication adjustment several months ago his BP has been labile -TSH/cortisol ok -renal aa u/s with stenosis of left, right side ok -nicardipine gtt stopped yesterday morning *History of CKD stage III (base ~Cr 1.4-1.5): Follows with Dr. Bowman *leukocytosis: suspect reactive, improved w/o abx, afebrile, no respiratory symptoms, UA unremarkable *Hypothyroidism: *GERD *Aortic valve replacement with bovine valve: P: -Restarted home Coreg(increased) and olmesartan, -may consider aldactone, however, BP adequate at this time and appears a litte dry, IVF's today -renin/aldosterone pending - -f/u outpt with Dr. Bowman and Dr. Brown -ppx: lovenox/home ppi Medical - PN: Qual - VTE Deep Vein Thrombosis/Pulmonary Embolism Present on Admission: No
[2018-03-16 07:38] LABS: Blood Urea Nitrogen 27 mg/dl (8-23)
[2018-03-16] MEDS ORDERED: 0.9 % SODIUM CHLORIDE 500 ML IV STA (08:22)
[2018-03-16 08:36] LABS: Lymphocytes % 19 % (15-49); Monocytes % (Manual) 8 % (1-12); Platelet Estimate NORMAL (NORMAL); RBC Morphology NORMAL (NORMAL); Segmented Neutrophils % 73 % (38-78)
[2018-03-16] MEDS: CARVEDILOL 12.5 MG TABLET PO SCH ×2 (09:15→17:12)
[2018-03-16] MEDS: PANTOPRAZOLE 40 MG TABLET PO SCH (09:15)
[2018-03-16] MEDS: CALCIUM (OYSTER SHELL) 500 MG TABLET PO SCH (09:15)
[2018-03-16] MEDS: ENOXAPARIN 40 MG/0.4 ML SYRINGE SQ SCH (09:15)
--- NOTE | 2018-03-16 09:20 | Discharge Summary ---
Medical - DS: Prov Patient information: Note initiated : 03/16/18 at 9:17 am Service Date, if different from initiated Date: [] Patient: Juan Valdez 83 y/o M admitted on 03/14/18 for blood pressure problem. Chief Complaint: [] Date of admission: 03/14/18 21:05 Primary care physician: Tyler Allison Consults: 03/14/18 Consult to Physician [CONS] Stat Comment: Consulting Provider: Albert Olvera Reason For Exam: Physician to Consult Medical - DS: Meds - Discharge Medications Prescriptions: Carvedilol [Coreg] 25 mg PO BID #60 tab Active and Home Medications: Home Medications calcium carbonate 500 mg calcium (1,250 mg) tablet 500 mg PO QDAY tab 05/13/15 [History Confirmed 03/14/18 Last Taken 05/07/16] omega-3 fatty acids 300 mg capsule 600 mg PO QDAY 05/13/15 [History Confirmed Last Taken 05/11/16 06:00] ferrous sulfate 325 mg (65 mg iron) tablet 325 mg PO QDAY 11/11/16 [History Confirmed 03/14/18 Last Taken Unknown] levothyroxine 150 mcg tablet 150 mcg PO QDAY #90 tab 05/28/17 [Rx Confirmed 04/19 Last Taken Unknown] aspirin 81 mg tablet,delayed release 81 mg PO .QOD tab 09/16/17 [History Confirmed 03/14/18 Last Taken Unknown] fexofenadine 180 mg tablet 180 mg PO QDAY #90 tab 10/07/17 [Rx Confirmed Last Taken Unknown] simvastatin 5 mg tablet 5 mg PO QPM #90 tab 11/11/17 [Rx Confirmed 03/15/18 Last Taken Unknown] pantoprazole 40 mg tablet,delayed release 40 mg PO QDAY #90 tab 12/03/17 [Rx Confirmed 03/15/18 Last Taken Unknown] olmesartan 40 mg tablet 40 mg PO QDAY #90 tab 02/04/18 [Rx Confirmed 03/14/18 Last Taken Unknown] carvedilol 25 mg tablet 12.5 mg PO BID #90 tab 02/15/18 [Rx Confirmed 03/14/18 Last Taken Unknown] Medical - DS: Hosp Hospital course: Mr. Valdez is a 83 year old M With history of hypertension who presents from Dr. Allison's office for hypertension. Patient states that his blood pressure medications were adjusted in January. He states that he was on Norvasc Coreg and I believe valsartan. Patient is a poor historian as to his medications but it sounds like he is on Norvasc 5 mg that was causing pedal edema. Thus the Norvasc was stopped his Coreg was increased to 12.5 twice daily sounds like he was only taking it once a day prior to that and his valsartan was switched to olmesartan. He has been measuring his blood pressure since then had a follow-up appointment Dr. Allison today he was found to have systolics of 235 with a diastolic of 160 in the office. Patient states when he was on the Norvasc in January his blood pressure was on the lower side and he has been having issues ever since the change. He does note that his pedal edema has gone away since stopping the Norvasc. He denies any headache visual changes dizziness lightheadedness shortness of breath or chest pain. He is asymptomatic in the ER with blood pressures in the ER of 248/111 on presentation he received oral and IV labetalol including 20 mg of IV labetalol he received IV hydralazine and Spironolactone with temporary improvement and then increase in blood pressure again with systolic of 200. And then was put on nicardipine drip with improvement. Urinalysis just shows protein. Renal ultrasound bilaterally to show mark renal cyst. A CT brain was unremarkable. 03/15 Poor sleep because of all the lines and wires attached to him. But did get a few hours early this morning. Otherwise no new complaints. Nicardipine drip was stopped earlier this morning with now blood pressure is creeping up to the systolics 170. 03/16 Slept better last night. No new complaints no overnight events no as needed blood pressure medication since shift change yesterday. Discharge diagnosis: Hypertensive urgency - Time Spent with Patient Total time spent providing and/or coordinating discharge services: Greater than 30 minutes Medical - DS: Exam - Constitutional Vitals: Vital Signs Temp Pulse Resp BP Pulse Ox 03/16/18 07:31 15 151/59 93 03/16/18 07:01 13 118/67 96 03/16/18 06:30 11 L 156/74 96 03/16/18 06:01 15 134/68 95 03/16/18 05:31 13 140/67 94 03/16/18 05:01 16 130/75 96 03/16/18 04:31 13 144/66 95 03/16/18 04:01 98.5 F 15 145/71 96 03/16/18 03:31 14 151/82 97 03/16/18 03:01 18 148/65 96 03/16/18 02:31 11 L 100/53 94 03/16/18 02:01 11 L 121/58 95 03/16/18 02:00 99 03/16/18 01:45 13 157/72 96 03/16/18 01:31 10 L 172/73 03/16/18 01:01 14 127/64 03/16/18 00:31 14 135/67 03/16/18 00:01 12 131/68 03/15/18 23:31 13 142/67 93 03/15/18 23:30 13 94 03/15/18 23:01 19 94 03/15/18 23:00 18 125/68 95 03/15/18 22:30 13 141/68 95 03/15/18 22:01 13 145/74 97 03/15/18 21:31 21 172/88 97 03/15/18 21:00 12 168/79 03/15/18 20:31 98.6 F 19 162/78 03/15/18 20:01 98.5 F 22 172/80 98 03/15/18 20:00 64 96 03/15/18 19:31 15 03/15/18 19:30 16 134/70 03/15/18 19:01 17 147/70 95 03/15/18 18:32 20 152/72 97 03/15/18 18:30 19 96 03/15/18 18:02 19 163/86 98 03/15/18 18:00 15 03/15/18 17:32 16 168/80 95 03/15/18 17:12 16 163/82 97 03/15/18 17:02 18 173/84 97 03/15/18 16:51 15 173/83 95 03/15/18 16:42 18 156/85 97 03/15/18 16:35 14 180/81 95 03/15/18 16:32 22 160/108 95 03/15/18 16:02 98.2 F 14 143/80 95 03/15/18 16:00 98.0 F 03/15/18 15:31 14 138/75 95 03/15/18 15:02 20 146/73 95 03/15/18 14:31 15 132/66 95 03/15/18 14:01 12 121/72 96 03/15/18 14:00 65 18 97 03/15/18 13:30 14 151/78 97 03/15/18 13:00 141/75 98 03/15/18 12:31 15 149/72 97 03/15/18 12:14 98.2 F 17 145/78 94 03/15/18 11:01 17 140/87 97 03/15/18 10:31 14 171/90 98 03/15/18 10:01 14 162/77 98 03/15/18 09:30 14 162/84 98 Intake and Output 03/15/18 03/16/18 03/16/18 21:59 05:59 13:59 Intake Total 240 / 240 720 / 720 Output Total 575 / 575 750 / 750 Balance -335 / -335 -30 / -30 Intake: Oral 240 / 240 720 / 720 Output: Void Amount 575 / 575 750 / 750 Other: Meal soup and crackers Percent of Meal Consumed 75% Feeding Ability Independent Urine Appearance Clear Urine Color Bright Yellow Urine Odor Normal Stool Size Moderate Stool Color Faria Stool Consistency Soft # Voids 1 # Bowel Movements 1 Weight 68.901 kg Medical - DS: Data Labs on day of discharge: Labs from last 24 hours 03/16/18 03/16/18 03/15/18 03:50 03:50 03:45 WBC 11.1 H RBC 4.01 L Hgb 12.5 L Hct 37.5 L MCV 93.6 MCH 31.3 MCHC 33.4 RDW 13.6 Plt Count 219 MPV 8.4 Total Counted 100 100 Seg Neutrophils % 73 75 Band Neutrophils % Not Reportable 2 Lymphocytes % 19 13 L Monocytes % (Manual) 8 9 Eosinophils % (Manual) 1 Nucleated RBCs 1 H Platelet Estimate Normal Normal RBC Morphology Normal Normal Sodium 138 Potassium 4.0 Chloride 100 Carbon Dioxide 26 Anion Gap 12.0 BUN 27 H Creatinine 1.6 H GFR Calculation 39 Glucose 86 Calcium 8.9 Medical - DS: A/P - Patient/Caregiver Discharge Instructions Activity: increase activity as tolerated Diet: Low Sodium (2gm) - Follow up Plan Follow up with: Tyler Allison MD [Primary Care Provider] - Disposition: Home, Self-Care Prognosis: Fair Rehab Potential: Fair Medical - DS: Qual - VTE Deep Vein Thrombosis/Pulmonary Embolism Present on Admission: No
[2018-03-16] MEDS: OLMESARTAN MEDOXOMIL 20 MG TABLET PO SCH (09:32)
[2018-03-16] MEDS: LEVOTHYROXINE 150 MCG TABLET PO SCH (09:32)
[2018-03-16] MEDS ORDERED: ONDANSETRON 4 MG/2 ML VIAL IV PRN ×2 (09:33→15:15)
[2018-03-16] MEDS ORDERED: ACETAMINOPHEN 325 MG TABLET PO PRN (09:33)
[2018-03-16] MEDS ORDERED: LABETALOL 5 MG/ML ML IV PRN (09:33)
[2018-03-16] MEDS ORDERED: CARVEDILOL 6.25 MG TABLET PO ONE (10:00)
[2018-03-16 10:49] LABS: Appearance,Urine CLEAR; Bacteria,Urine 0 /hpf (0); Bilirubin,Urine NEG (NEG); Color,Urine STRAW; Glucose,Urine (UA) NEGATIVE (NEG); Leukocyte Esterase,Urine NEG /uL (NEG); Mucus,Urine FEW /hpf (0); Protein,Urine NEG (NEG); Specific Gravity,Urine 1.009 (1.000-1.035); Urine Blood >=1.0 mg/dL (<0.03); Urine RBC 12 /hpf (0-1); Urine Squamous Epithelial Cell 0 /hpf (0-4); Urine WBC 2 /hpf (0-4); Urobilinogen,Urine NEG (NEG)
[2018-03-16 11:03] LABS: Creatinine,Urine Random 48.2 mg/dl
[2018-03-16] MEDS ORDERED: niCARdipine 25 MG in 0.9 % SODIUM CHLORIDE 240 ML IV SCH (13:12)
[2018-03-16] MEDS ORDERED: 0.9 % SODIUM CHLORIDE 10 ML SYRINGE IV SCH (14:00)
[2018-03-16] MEDS ORDERED: CARVEDILOL 12.5 MG TABLET PO SCH (17:30)
[2018-03-16] MEDS ORDERED: niCARdipine 25 MG in 0.9 % SODIUM CHLORIDE 240 ML IV PRN (18:12)
[2018-03-16] MEDS: LABETALOL 5 MG/ML ML IV PRN ×2 (20:38→23:08)
[2018-03-17] MEDS: LABETALOL 5 MG/ML ML IV PRN ×2 (03:36→05:38)
[2018-03-17] MEDS: 0.9 % SODIUM CHLORIDE 10 ML SYRINGE IV SCH ×2 (05:38→14:15)
[2018-03-17 06:44] LABS: Basophils # (Auto) 0.1 K/mcL (0.0-0.3); Basophils % (Auto) 0.5 % (0.0-2.0); Eosinophils # (Auto) 0.3 K/mcL (0.0-0.7); Eosinophils % (Auto) 2.3 % (0.0-7.0); Granulocytes % (Auto) 74.1 % (38.0-78.0); Lymphocytes # (Auto) 1.5 K/mcL (1.5-4.8); Mean Cell Volume 93.9 fL (80.0-100.0); Mean Corpuscular HGB Conc 33.3 g/dL (31.0-36.0); Mean Corpuscular Hemoglobin 31.3 pg (26.0-34.0); Monocytes # (Auto) 1.2 K/mcL (0.1-0.9); Monocytes % (Auto) 10.1 % (1.0-12.0); Platelet Count 221 K/mcL (140-440); RBC 4.06 M/mcL (4.50-5.90); Red Cell Distribution Width 13.3 % (11.5-14.5)
[2018-03-17] MEDS ORDERED: LEVOTHYROXINE 150 MCG TABLET PO SCH (07:30)
[2018-03-17] MEDS ORDERED: PANTOPRAZOLE 40 MG TABLET PO SCH (07:30)
[2018-03-17 07:43] LABS: Blood Urea Nitrogen 30 mg/dl (8-23)
[2018-03-17] MEDS: LEVOTHYROXINE 150 MCG TABLET PO SCH (07:49)
[2018-03-17] MEDS: PANTOPRAZOLE 40 MG TABLET PO SCH (07:50)
[2018-03-17] MEDS ORDERED: hydrALAZINE 20 MG/ML VIAL IV PRN ×2 (08:14→08:25)
[2018-03-17] MEDS ORDERED: hydrALAZINE 20 MG/ML VIAL ONE (08:33)
--- NOTE | 2018-03-17 08:34 | Internal Med Progress Note ---
Medical - PN: Subj Patient information: Note initiated : 03/17/18 at 7:16 am Service Date, if different from initiated Date: [] Patient: Juan Valdez a 83 y/o M admitted on 03/14/18 for blood pressure problem. Chief Complaint: [] Interval history: Mr. Valdez is a 83 year old M With history of hypertension who presents from Dr. Allison's office for hypertension. Patient states that his blood pressure medications were adjusted in January. He states that he was on Norvasc Coreg and I believe valsartan. Patient is a poor historian as to his medications but it sounds like he is on Norvasc 5 mg that was causing pedal edema. Thus the Norvasc was stopped his Coreg was increased to 12.5 twice daily sounds like he was only taking it once a day prior to that and his valsartan was switched to olmesartan. He has been measuring his blood pressure since then had a follow-up appointment Dr. Allison today he was found to have systolics of 235 with a diastolic of 160 in the office. Patient states when he was on the Norvasc in January his blood pressure was on the lower side and he has been having issues ever since the change. He does note that his pedal edema has gone away since stopping the Norvasc. He denies any headache visual changes dizziness lightheadedness shortness of breath or chest pain. He is asymptomatic in the ER with blood pressures in the ER of 248/111 on presentation he received oral and IV labetalol including 20 mg of IV labetalol he received IV hydralazine and Spironolactone with temporary improvement and then increase in blood pressure again with systolic of 200. And then was put on nicardipine drip with improvement. Urinalysis just shows protein. Renal ultrasound bilaterally to show mark renal cyst. A CT brain was unremarkable. 03/15 Poor sleep because of all the lines and wires attached to him. But did get a few hours early this morning. Otherwise no new complaints. Nicardipine drip was stopped earlier this morning with now blood pressure is creeping up to the systolics 170. 03/16 Slept better last night. No new complaints no overnight events no as needed blood pressure medication since shift change yesterday. 03/17 mild headache, otherwise no new issues. No overnight events. Was given labetalol x1 last night. don't believe he received his coreg 25mg last night, only 18.75. Review of Systems: denies headache/visual changes/fever/chills/nausea/vomiting/chest or abdominal pain/cough/dyspnea/diarrhea. Otherwise see above. - Constitutional Vitals: Vital Signs Temp Pulse Resp BP Pulse Ox 98.4 F 68 15 184/84 96 03/17/18 04:01 03/16/18 11:46 03/17/18 05:01 03/17/18 05:01 03/17/18 01:04 Period Temp Pulse Resp BP Sys/[place] Pulse Ox Last 24 Hr 97.2 F-98.8 F 58-68 13-21 127-204/59-91 93-99 Intake and Output 03/16/18 03/17/18 03/17/18 21:59 05:59 13:59 Intake Total 500 / 500 450 / 450 Output Total 400 / 400 1300 / 1300 Balance 100 / 100 -850 / -850 Weight 69.808 kg Intake & Output: Intake & Output 03/16/18 03/17/18 03/17/18 21:59 05:59 13:59 Intake Total 500 / 500 450 / 450 Output Total 400 / 400 1300 / 1300 Balance 100 / 100 -850 / -850 Weight 69.808 kg Intake: IV 500 / 500 Oral 450 / 450 Output: Urine Catheter Amount 500 / 500 Void Amount 400 / 400 800 / 800 Exam: General: Alert, Awake, No acute Distress HEENT: EOMI, neck supple, CV: RRR, 2/6 SM, normal s1/s2 Pulm: Clear b/l, no wheezing/rhonchi/rales Abd: soft, nontender, +BS x4 Ext: no clubbing/cyanosis/edema Neuro: Alert, no focal deficits, moves all extremities Skin: warm/dry Medical - PN: Obj Da - Labs CBC & Chem 7: 03/17/18 04:00 03/17/18 04:00 Labs: Abnormal Lab Results 03/17/18 03/16/18 03/16/18 04:00 09:41 03:50 WBC 11.5 H RBC 4.06 L Hgb 12.7 L Hct 38.1 L Gran % Lymph % (Auto) 13.0 L Gran # 8.5 H Lymph # (Auto) [place] # (Auto) 1.2 H Lymphocytes % Nucleated RBCs BUN 27 H Creatinine 1.6 H Urine Protein Urine Occult Blood >=1.0 A Urine RBC 12 H 03/16/18 03/15/18 03/15/18 03:50 03:45 03:45 WBC 11.1 H RBC 4.01 L Hgb 12.5 L Hct 37.5 L Gran % Lymph % (Auto) Gran # Lymph # (Auto) [place] # (Auto) Lymphocytes % 13 L Nucleated RBCs 1 H BUN 24 H Creatinine 1.6 H Urine Protein Urine Occult Blood Urine RBC 03/15/18 03/14/18 03/14/18 03:45 15:50 15:17 WBC 13.8 H RBC 4.29 L Hgb 13.3 L Hct 40.0 L Gran % 83.3 H Lymph % (Auto) 7.0 L Gran # 11.5 H Lymph # (Auto) 1.0 L [place] # (Auto) 1.3 H Lymphocytes % Nucleated RBCs BUN Creatinine 1.4 H Urine Protein 30 A Urine Occult Blood 0.2 A Urine RBC 24 H 03/14/18 15:17 WBC RBC Hgb Hct Gran % Lymph % (Auto) 11.2 L Gran # 8.2 H Lymph # (Auto) 1.2 L [place] # (Auto) 1.0 H Lymphocytes % Nucleated RBCs BUN Creatinine Urine Protein Urine Occult Blood Urine RBC Meds: Medications Acetaminophen (Tylenol) 650 mg PO Q6HP PRN PRN Reason: PAIN/FEVER > 101 Aspirin (Aspirin) 81 mg PO Q48H [facility] Calcium Carbonate/Glycine (Oscal) 500 mg PO QDAY [facility] Carvedilol (Coreg) 25 mg PO BIDCC [facility] Last Admin: 03/16/18 17:12 Dose: 18.75 mg Enoxaparin Sodium (Lovenox) 40 mg SQ DAILY [facility] Nicardipine HCl 25 mg/ Sodium (Chloride) 250 mls @ 50 mls/hr IV Q5H PRN; Protocol PRN Reason: Titrated to MAP of 100 Labetalol HCl (Trandate) 0 mg IV Q2HP PRN PRN Reason: Hypertension Last Admin: 03/17/18 05:38 Dose: 20 mg Levothyroxine Sodium (Synthroid) 150 mcg PO QAMAC [facility] Olmesartan (Benicar) 40 mg PO DAILY [facility] Ondansetron HCl (Zofran) 4 mg IV Q4HP PRN PRN Reason: Nausea And Vomiting Pantoprazole Sodium (Protonix) 40 mg PO QAMAC DOV Sodium Chloride (Saline Flush) 10 ml IV Q8 [facility] Last Admin: 03/17/18 05:38 Dose: 10 ml Medical - PN: A/P - Time Spent With Patient Total time spent is greater than 50% in coordination of care (as documented) at patient's floor/unit and/or counseling patient: - Narrative A/P Narrative: A: *Hypertensive urgency (h/o HTN): With significantly elevated blood pressure surprisingly asymptomatic on admit -MAP on admit 150 -Since medication adjustment several months ago his BP has been labile -TSH/cortisol ok -renal aa u/s with stenosis of left, right side ok -nicardipine gtt stopped yesterday morning *History of CKD stage III (base ~Cr 1.4-1.5): Follows with Dr. Bowman *leukocytosis: suspect reactive, improved w/o abx, afebrile, no respiratory symptoms, UA unremarkable *Hypothyroidism: *GERD *Aortic valve replacement with bovine valve: P: -Restarted home Coreg(titrated up to 25bid) and olmesartan, -renin/aldosterone pending -discussed with Nephrology (Dr. Godwin), will go ahead and start chlorthalidone 25mg -f/u outpt with Dr. Bowman and Dr. Brown -ppx: lovenox/home ppi Medical - PN: Qual - VTE Deep Vein Thrombosis/Pulmonary Embolism Present on Admission: No
[2018-03-17] MEDS ORDERED: ENOXAPARIN 40 MG/0.4 ML SYRINGE SQ SCH (09:00)
[2018-03-17] MEDS ORDERED: CALCIUM (OYSTER SHELL) 500 MG TABLET PO SCH (09:00)
[2018-03-17] MEDS ORDERED: CHLORTHALIDONE 25 MG TABLET PO SCH (09:00)
[2018-03-17] MEDS ORDERED: ASPIRIN 81 MG TAB.CHEW PO SCH ×2 (09:00)
[2018-03-17] MEDS ORDERED: OLMESARTAN MEDOXOMIL 20 MG TABLET PO SCH (09:00)
[2018-03-17] MEDS: ENOXAPARIN 40 MG/0.4 ML SYRINGE SQ SCH (10:23)
[2018-03-17] MEDS: CALCIUM (OYSTER SHELL) 500 MG TABLET PO SCH (10:24)
[2018-03-17] MEDS: CARVEDILOL 12.5 MG TABLET PO SCH ×2 (14:09→20:53)
[2018-03-17] MEDS: ACETAMINOPHEN 325 MG TABLET PO PRN ×2 (14:14→20:55)
[2018-03-17] MEDS: OLMESARTAN MEDOXOMIL 20 MG TABLET PO SCH (15:20)
[2018-03-17] MEDS: CHLORTHALIDONE 25 MG TABLET PO SCH (15:20)
[2018-03-18 06:49] LABS: Basophils # (Auto) 0.1 K/mcL (0.0-0.3); Basophils % (Auto) 0.5 % (0.0-2.0); Eosinophils # (Auto) 0.2 K/mcL (0.0-0.7); Eosinophils % (Auto) 1.6 % (0.0-7.0); Granulocytes % (Auto) 80.9 % (38.0-78.0); Lymphocytes # (Auto) 1.2 K/mcL (1.5-4.8); Lymphocytes % (Auto) 8.8 % (15.5-49.0); Mean Cell Volume 92.9 fL (80.0-100.0); Mean Corpuscular HGB Conc 33.6 g/dL (31.0-36.0); Mean Corpuscular Hemoglobin 31.2 pg (26.0-34.0); Monocytes # (Auto) 1.1 K/mcL (0.1-0.9); Monocytes % (Auto) 8.2 % (1.0-12.0); Platelet Count 216 K/mcL (140-440); RBC 4.12 M/mcL (4.50-5.90); Red Cell Distribution Width 13.5 % (11.5-14.5)
[2018-03-18 07:37] LABS: ALT/SGPT 12 U/l (0-40); Albumin 3.7 gm/dL (3.2-5.2); Albumin/Globulin Ratio 1.6 (1.0-2.3); Alkaline Phosphatase 49 U/L (39-117); Bilirubin,Direct < 0.2 mg/dL (0.0-0.3); Blood Urea Nitrogen 35 mg/dl (8-23); Gamma Glutamyl Transpeptidase 17 U/L (8-61); Uric Acid 7.1 mg/dL (2.5-8.0)
--- NOTE | 2018-03-18 08:00 | XRay Report ---
INDICATION: Leukocytosis TECHNIQUE: PA and lateral upright chest x-ray COMPARISON: Chest x-rays dated 05/26/2016, 09/03/2014, 08/22/2013 FINDINGS: Previous median sternotomy. There is right-sided pleural thickening and elevation of the right hemidiaphragm. These findings are chronic. No acute pulmonary parenchymal infiltrate or mass. No evidence for pneumonia. Heart size and vascularity are unremarkable. There is a moderate hiatal hernia. IMPRESSION: 1. Chronic elevation of the right hemidiaphragm and mild right pleural thickening 2. No acute infiltrate Interpreted and Authenticated by: Harris Read 03/18/18
[2018-03-18] MEDS: 0.9 % SODIUM CHLORIDE 10 ML SYRINGE IV SCH ×2 (08:06→08:07)
[2018-03-18] MEDS: CARVEDILOL 12.5 MG TABLET PO SCH (08:07)
[2018-03-18] MEDS: LEVOTHYROXINE 150 MCG TABLET PO SCH (08:07)
[2018-03-18] MEDS: PANTOPRAZOLE 40 MG TABLET PO SCH (08:07)
[2018-03-18] MEDS: CALCIUM (OYSTER SHELL) 500 MG TABLET PO SCH (08:42)
[2018-03-18] MEDS: CHLORTHALIDONE 25 MG TABLET PO SCH (08:43)
[2018-03-18] MEDS: OLMESARTAN MEDOXOMIL 20 MG TABLET PO SCH (08:43)
--- NOTE | 2018-03-18 10:05 | Discharge Summary ---
Medical - DS: Prov Patient information: Note initiated : 03/18/18 at 10:01 am Service Date, if different from initiated Date: [] Patient: Juan Valdez 83 y/o M admitted on 03/14/18 for blood pressure problem. Chief Complaint: [] Date of admission: 03/14/18 21:05 Discharge date: 03/18/18 Primary care physician: Tyler Allison Consults: 03/14/18 Consult to Physician [CONS] Stat Comment: Consulting Provider: Albert Olvera Reason For Exam: Physician to Consult Discharging clinician: Ivy Valencia Medical - DS: Meds - Discharge Medications Prescriptions: Carvedilol [Coreg] 25 mg PO BID #60 tab Chlorthalidone [Hygroton] 25 mg PO DAILY #30 tab Active and Home Medications: Home Medications calcium carbonate 500 mg calcium (1,250 mg) tablet 500 mg PO QDAY tab 05/13/15 [History Confirmed 03/14/18 Last Taken 05/07/16] omega-3 fatty acids 300 mg capsule 600 mg PO QDAY 05/13/15 [History Confirmed Last Taken 05/11/16 06:00] ferrous sulfate 325 mg (65 mg iron) tablet 325 mg PO QDAY 11/11/16 [History Confirmed 03/14/18 Last Taken Unknown] levothyroxine 150 mcg tablet 150 mcg PO QDAY #90 tab 05/28/17 [Rx Confirmed 04/19 Last Taken Unknown] aspirin 81 mg tablet,delayed release 81 mg PO .QOD tab 09/16/17 [History Confirmed 03/14/18 Last Taken Unknown] simvastatin 5 mg tablet 5 mg PO QPM #90 tab 11/11/17 [Rx Confirmed 03/15/18 Last Taken Unknown] pantoprazole 40 mg tablet,delayed release 40 mg PO QDAY #90 tab 12/03/17 [Rx Confirmed 03/15/18 Last Taken Unknown] olmesartan 40 mg tablet 40 mg PO QDAY #90 tab 02/04/18 [Rx Confirmed 03/14/18 Last Taken Unknown] Carvedilol [Coreg] 25 mg PO BID #60 tab 03/16/18 [Rx Last Taken Unknown] Medical - DS: Hosp Hospital course: Interval history: Mr. Valdez is a 83 year old M With history of hypertension who presents from Dr. Allison's office for hypertension. Patient states that his blood pressure medications were adjusted in January. He states that he was on Norvasc Coreg and I believe valsartan. Patient is a poor historian as to his medications but it sounds like he is on Norvasc 5 mg that was causing pedal edema. Thus the Norvasc was stopped his Coreg was increased to 12.5 twice daily sounds like he was only taking it once a day prior to that and his valsartan was switched to olmesartan. He has been measuring his blood pressure since then had a follow-up appointment Dr. Allison today he was found to have systolics of 235 with a diastolic of 160 in the office. Patient states when he was on the Norvasc in January his blood pressure was on the lower side and he has been having issues ever since the change. He does note that his pedal edema has gone away since stopping the Norvasc. He denies any headache visual changes dizziness lightheadedness shortness of breath or chest pain. He is asymptomatic in the ER with blood pressures in the ER of 248/111 on presentation he received oral and IV labetalol including 20 mg of IV labetalol he received IV hydralazine and Spironolactone with temporary improvement and then increase in blood pressure again with systolic of 200. And then was put on nicardipine drip with improvement. Urinalysis just shows protein. Renal ultrasound bilaterally to show mark renal cyst. A CT brain was unremarkable. 03/15 Poor sleep because of all the lines and wires attached to him. But did get a few hours early this morning. Otherwise no new complaints. Nicardipine drip was stopped earlier this morning with now blood pressure is creeping up to the systolics 170. 03/16 Slept better last night. No new complaints no overnight events no as needed blood pressure medication since shift change yesterday. 03/17 mild headache, otherwise no new issues. No overnight events. Was given labetalol x1 last night. don't believe he received his coreg 25mg last night, only 18.75. 03/18 Patient seen examined, no acute concerns, his wbc count is up again, but he has no clinical e/o infection, ua done recently neg, no urinary complaints, Chest x ray done today is neg for pneumonia. His procalcitonin is negative. His bp is much better after initiation of hydralazine. He did complain about some dryness in the mouth this morning. Patient stable for discharge home. A/P *Hypertensive urgency (h/o HTN): With significantly elevated blood pressure surprisingly asymptomatic on admit -Treated with nicardipine drip, off drip now, no IV meds x 24 hrs. -Discharge BP meds, Coreg 25mg bid, chlorthalidone 25mg daily, olmesartan 40mg daily. -Follow up with Secondary hypertension workup with Dr Meléndez Leucocytosis- no e/o infection, watch for now, follow up as outpatient with PCP recommend PCP check cbc and bmp in 1 week. CXR neg, ua neg, clinically no e/o infection. Rest of the stay in the hospital is uneventful no changes made to home med list except as above. Discharge diagnosis: Secondary Hypertension, Hypertensive Urgency - Time Spent with Patient Total time spent providing and/or coordinating discharge services: Greater than 30 minutes Medical - DS: Exam - Constitutional Vitals: Vital Signs Temp Resp BP Pulse Ox 03/18/18 04:03 97.6 F 18 154/67 93 03/18/18 00:01 98.2 F 17 123/65 96 03/17/18 23:00 145/63 03/17/18 22:01 145/73 03/17/18 21:03 180/80 03/17/18 20:01 97.8 F 17 163/83 03/17/18 18:55 149/75 96 03/17/18 18:01 18 132/73 95 03/17/18 14:00 149/75 03/17/18 13:31 142/77 03/17/18 13:09 140/73 03/17/18 12:00 97.6 F 18 147/72 97 03/17/18 11:31 130/57 03/17/18 11:00 125/57 03/17/18 10:15 126/63 Intake and Output 03/17/18 03/18/18 03/18/18 21:59 05:59 13:59 Intake Total 90 / 90 Balance 90 / 90 Intake: Oral 90 / 90 Other: Meal Dinner Percent of Meal Consumed 100% # Voids 1 Weight 153 lb 14.4 oz Additional comments: Constitutional; Afebrile, cooperative, alert, not in distress. Respiratory system: Air Entry equal on both sides, No crackles or wheezing, no rhonchi. CVS- Rate rhythm regular, S1,S2 heard, no gallop, no rub. Abdomen- Soft nontender abdomen, no organomegaly, no tenderness, no guarding or rigidity, [employer]- AOOx3, moving all extremities, no gross focal deficit noted. Medical - DS: Data Labs on day of discharge: Labs from last 24 hours 03/18/18 03/18/18 03/18/18 07:31 04:13 04:13 WBC 13.8 H RBC 4.12 L Hgb 12.9 L Hct 38.3 L MCV 92.9 MCH 31.2 MCHC 33.6 RDW 13.5 Plt Count 216 MPV 8.7 Gran % 80.9 H Lymph % (Auto) 8.8 L [place] % (Auto) 8.2 Eos % (Auto) 1.6 Baso % (Auto) 0.5 Gran # 11.1 H Lymph # (Auto) 1.2 L [place] # (Auto) 1.1 H Eos # (Auto) 0.2 Baso # (Auto) 0.1 Sodium 138 Potassium 4.0 Chloride 101 Carbon Dioxide 24 Anion Gap 13.0 BUN 35 H Creatinine 1.4 H GFR Calculation 46 Glucose 84 Uric Acid 7.1 Calcium 8.7 Phosphorus 3.4 Magnesium 2.3 Total Bilirubin 0.5 Direct Bilirubin < 0.2 GGT 17 AST 15 ALT 12 Alkaline Phosphatase 49 Lactate Dehydrogenase 196 Total Protein 6.0 Albumin 3.7 Globulin 2.3 Albumin/Globulin Ratio 1.6 Triglycerides 112 Aldosterone Procalcitonin < 0.05 03/15/18 03:45 WBC RBC Hgb Hct MCV MCH MCHC RDW Plt Count MPV Gran % Lymph % (Auto) [place] % (Auto) Eos % (Auto) Baso % (Auto) Gran # Lymph # (Auto) [place] # (Auto) Eos # (Auto) Baso # (Auto) Sodium Potassium Chloride Carbon Dioxide Anion Gap BUN Creatinine GFR Calculation Glucose Uric Acid Calcium Phosphorus Magnesium Total Bilirubin Direct Bilirubin GGT AST ALT Alkaline Phosphatase Lactate Dehydrogenase Total Protein Albumin Globulin Albumin/Globulin Ratio Triglycerides Aldosterone 2 Procalcitonin Medical - DS: A/P - Patient/Caregiver Discharge Instructions Activity: increase activity as tolerated Diet: Low Sodium (2gm), Cardiac Additional Instructions: Please follow up with PCP in 1 week for blood pressure follow up. Please make sure your PCP checks your CBC and BMP in 1 weeks time, You will take your coreg at 25mg twice daily. You will take olmesartan 40mg daily You have been started on a new blood pressure medication chlorthalidone 25mg once daily. Please make sure you fruit picker this medication today. Follow up with Dr Bowman as previously scheduled. Go to the ER if any acute concerns, bp > 220 systolic and or 120 diastolic, chest pain, or fever. Prescriptions: Carvedilol [Coreg] 25 mg PO BID #60 tab - Follow up Plan Follow up with: Mari Bowman MD [Physician] - 04/08/18 1:00 pm Tyler Allison MD [Primary Care Provider] - 03/22/18 2:00 pm Disposition: Home, Self-Care Prognosis: Fair Rehab Potential: Fair I certify that the patient requires SNF services: No Overall status at discharge: patient is progressing back to baseline Medical - DS: Qual - VTE Deep Vein Thrombosis/Pulmonary Embolism Present on Admission: No
[2018-03-18] MEDS: ENOXAPARIN 40 MG/0.4 ML SYRINGE SQ SCH (10:24)
== END 2018-03-18 11:40 | disposition home or self-care (01) | DRG 305 ==
LOC: ED 14:58 → ICU 21:05
PROVIDERS: ADMIT Internal Medicine; ATTEND Internal Medicine
CPT/HCPCS: 84145; 99223; 99231; J0360; J1650; J7040; J7050

== ENCOUNTER 2023-05-12 10:39 | Inpatient (IN) ==
[2023-05-12] MEDS ORDERED: 0.9 % SODIUM CHLORIDE 1,000 ML IV ONE (10:52)
[2023-05-12 12:03] LABS: Basophils # (Auto) 0.02 K/mcL (0.00-0.30); Basophils % (Auto) 0.2 % (0.0-2.0); Eosinophils # (Auto) 0 K/mcL (0.00-0.70); Eosinophils % (Auto) 0 % (0.0-7.0); Hematocrit 35.2 % (40.1-51.0); Hemoglobin 11.3 g/dL (13.7-17.5); Lymphocytes # (Auto) 0.89 K/mcL (1.50-4.80); Lymphocytes % (Auto) 8.2 % (15.5-49.0); Mean Cell Volume 94.1 fL (80.0-100.0); Mean Corpuscular HGB Conc 32.1 g/dL (31.0-36.0); Mean Platelet Volume 9.9 fL (8.8-12.5); Monocytes # (Auto) 1.82 K/mcL (0.10-0.90); Monocytes % (Auto) 16.8 % (1.0-12.0); Neutrophils % (Auto) 74.5 % (38.0-78.0); Platelet Count 208 K/mcL (140-440); RBC 3.74 M/mcL (4.63-6.08); Red Cell Distribution Width 13.4 % (11.5-14.5); WBC 10.8 K/mcL (4.5-11.0)
[2023-05-12 12:36] LABS: ALT/SGPT 10 U/L (<40); AST/SGOT 33 U/L (<40); Albumin/Globulin Ratio 1.5 (1.0-2.3); Alkaline Phosphatase 67 U/L (39-117); Bilirubin,Total 0.3 mg/dL (0.1-1.0); Blood Urea Nitrogen 36 mg/dL (8-23); Calcium 8.7 mg/dL (8.6-10.4); Carbon Dioxide 24 mmol/L (22-30); Chloride 102 mmol/L (96-108); Globulin 2.6 gm/dL (2.2-3.7); Glomerular Filtration Rate 19; Glucose 107 mg/dL (70-105); Thyroid Stimulating Hormone 1.08 uIU/mL (0.27-5.01)
[2023-05-12 13:58] LABS: POC Calcium, Ionized 1.09 (1.16-1.32); POC Potassium 3.9 (3.3-5.1)
[2023-05-12 14:09] LABS: Free T3 1.6 pg/mL (2.0-4.4); Free T4 (Free Thyroxine) 1.35 ng/dL (0.93-1.70)
[2023-05-12] MEDS ORDERED: 0.9 % SODIUM CHLORIDE 500 ML IV ONE (14:17)
[2023-05-12 14:20] LABS: Appearance,Urine Slightly Cloudy (Clear); Bacteria,Urine Many /hpf (0); Bilirubin,Urine Negative (Negative); Color,Urine Yellow; Culture Indicated,Urine Yes; Glucose,Urine (UA) Negative (Negative); Ketones,Urine Negative (Negative); Leukocyte Esterase,Urine Negative /uL (Negative); Nitrate,Urine Negative (Negative); Protein,Urine >=300 mg/dL (Negative); Urine Blood 3+(Large) ery/mcL (Negative); Urine RBC 104 /hpf (0-3); Urine Squamous Epithelial Cell 1 /hpf (0-4); Urine WBC 5 /hpf (0-4); Urobilinogen,Urine Normal
[2023-05-12] MEDS ORDERED: ACETAMINOPHEN 325 MG TABLET PO PRN (17:58)
[2023-05-12] MEDS ORDERED: ONDANSETRON 4 MG/2 ML VIAL IV PRN (17:58)
[2023-05-12] MEDS: LACTATED RINGERS 1,000 ML IV SCH (20:29)
[2023-05-12] MEDS: 0.9 % SODIUM CHLORIDE 10 ML SYRINGE IV SCH (20:29)
[2023-05-12] MEDS: HEPARIN 5,000 UNIT/ML VIAL SQ SCH (20:57)
[2023-05-12] MEDS: SENNOSIDES 1 TABLET PO SCH (20:58)
[2023-05-13] MEDS: LACTATED RINGERS 1,000 ML IV SCH ×4 (05:40→16:50)
[2023-05-13] MEDS: 0.9 % SODIUM CHLORIDE 10 ML SYRINGE IV SCH ×3 (05:56→21:00)
[2023-05-13] MEDS: amLODIPine 10 MG TABLET PO SCH (08:51)
[2023-05-13] MEDS: LEVOTHYROXINE 88 MCG TABLET PO SCH (08:51)
[2023-05-13] MEDS: OMEPRAZOLE 20 MG CAPSULE PO SCH (08:51)
[2023-05-13] MEDS: HEPARIN 5,000 UNIT/ML VIAL SQ SCH ×2 (08:56→21:19)
[2023-05-13 09:22] LABS: Hematocrit 31.3 % (40.1-51.0)
[2023-05-13 09:36] LABS: ALT/SGPT 12 U/L (<40); AST/SGOT 32 U/L (<40); Albumin 3.3 gm/dL (3.2-5.2); Albumin/Globulin Ratio 1.7 (1.0-2.3); Alkaline Phosphatase 56 U/L (39-117); Bilirubin,Direct < 0.2 mg/dL (0-0.3); Bilirubin,Total 0.3 mg/dL (0.1-1.0); Blood Urea Nitrogen 33 mg/dL (8-23); Calcium 7.8 mg/dL (8.6-10.4); Carbon Dioxide 24 mmol/L (22-30); Chloride 105 mmol/L (96-108); Glomerular Filtration Rate 21; Glucose 90 mg/dL (70-105); Lactate Dehydrogenase 241 U/L (135-225); Phosphorous 4.2 mg/dL (2.5-4.5); Triglycerides 115 mg/dL (<150); Uric Acid 6.4 mg/dL (2.5-8.0)
[2023-05-13] MEDS: SIMVASTATIN 10 MG TABLET PO SCH (20:59)
[2023-05-13] MEDS: CARVEDILOL 6.25 MG TABLET PO SCH (20:59)
[2023-05-13] MEDS: SENNOSIDES 1 TABLET PO SCH (21:00)
[2023-05-14] MEDS: 0.9 % SODIUM CHLORIDE 10 ML SYRINGE IV SCH ×3 (06:56→20:38)
[2023-05-14] MEDS: amLODIPine 10 MG TABLET PO SCH (08:03)
[2023-05-14] MEDS: OMEPRAZOLE 20 MG CAPSULE PO SCH (08:03)
[2023-05-14] MEDS: ASPIRIN 81 MG TAB.CHEW PO SCH (08:03)
[2023-05-14] MEDS: LEVOTHYROXINE 88 MCG TABLET PO SCH (08:03)
[2023-05-14] MEDS: HEPARIN 5,000 UNIT/ML VIAL SQ SCH ×2 (08:04→20:41)
[2023-05-14 08:47] LABS: ALT/SGPT 11 U/L (<40); AST/SGOT 30 U/L (<40); Albumin/Globulin Ratio 1.3 (1.0-2.3); Alkaline Phosphatase 55 U/L (39-117); Bilirubin,Direct < 0.2 mg/dL (0-0.3); Bilirubin,Total 0.3 mg/dL (0.1-1.0); Blood Urea Nitrogen 34 mg/dL (8-23); Calcium 7.8 mg/dL (8.6-10.4); Carbon Dioxide 26 mmol/L (22-30); Chloride 103 mmol/L (96-108); Globulin 2.3 gm/dL (2.2-3.7); Glomerular Filtration Rate 19; Glucose 90 mg/dL (70-105); Lactate Dehydrogenase 213 U/L (135-225); Phosphorous 4.1 mg/dL (2.5-4.5); Triglycerides 117 mg/dL (<150); Uric Acid 6.2 mg/dL (2.5-8.0)
[2023-05-14 09:42] LABS: Creatine Kinase 145 U/L (24-195)
[2023-05-14] MEDS: LACTATED RINGERS 1,000 ML IV SCH ×2 (10:07→19:39)
[2023-05-14] MEDS: CARVEDILOL 6.25 MG TABLET PO SCH (20:38)
[2023-05-14] MEDS: SIMVASTATIN 10 MG TABLET PO SCH (20:38)
[2023-05-14] MEDS: SENNOSIDES 1 TABLET PO SCH (20:42)
[2023-05-15] MEDS: LACTATED RINGERS 1,000 ML IV SCH (05:35)
[2023-05-15] MEDS: 0.9 % SODIUM CHLORIDE 10 ML SYRINGE IV SCH ×3 (07:08→20:39)
[2023-05-15] MEDS: HEPARIN 5,000 UNIT/ML VIAL SQ SCH ×2 (08:50→20:38)
[2023-05-15] MEDS: amLODIPine 10 MG TABLET PO SCH (08:51)
[2023-05-15] MEDS: OMEPRAZOLE 20 MG CAPSULE PO SCH (08:51)
[2023-05-15] MEDS: LEVOTHYROXINE 88 MCG TABLET PO SCH (08:51)
[2023-05-15 10:32] LABS: Basophils # (Auto) 0.02 K/mcL (0.00-0.30); Basophils % (Auto) 0.2 % (0.0-2.0); Eosinophils # (Auto) 0.11 K/mcL (0.00-0.70); Eosinophils % (Auto) 1.2 % (0.0-7.0); Hematocrit 34.1 % (40.1-51.0); Hemoglobin 11.1 g/dL (13.7-17.5); Lymphocytes # (Auto) 0.85 K/mcL (1.50-4.80); Lymphocytes % (Auto) 9.5 % (15.5-49.0); Mean Cell Volume 94.2 fL (80.0-100.0); Mean Corpuscular HGB Conc 32.6 g/dL (31.0-36.0); Mean Platelet Volume 10.2 fL (8.8-12.5); Monocytes # (Auto) 0.81 K/mcL (0.10-0.90); Monocytes % (Auto) 9.1 % (1.0-12.0); Neutrophils % (Auto) 79.8 % (38.0-78.0); Platelet Count 177 K/mcL (140-440); RBC 3.62 M/mcL (4.63-6.08); WBC 8.9 K/mcL (4.5-11.0)
[2023-05-15 10:45] LABS: Blood Urea Nitrogen 34 mg/dL (8-23); Calcium 7.9 mg/dL (8.6-10.4); Carbon Dioxide 21 mmol/L (22-30); Chloride 105 mmol/L (96-108); Glomerular Filtration Rate 21; Glucose 143 mg/dL (70-105)
[2023-05-15] MEDS ORDERED: LACTATED RINGERS 1,000 ML IV ONE (11:19)
[2023-05-15] MEDS: CARVEDILOL 6.25 MG TABLET PO SCH (20:35)
[2023-05-15] MEDS: SIMVASTATIN 10 MG TABLET PO SCH (20:37)
[2023-05-15] MEDS: SENNOSIDES 1 TABLET PO SCH (20:38)
[2023-05-16] MEDS: 0.9 % SODIUM CHLORIDE 10 ML SYRINGE IV SCH (04:33)
[2023-05-16] MEDS: amLODIPine 10 MG TABLET PO SCH (08:16)
[2023-05-16] MEDS: ASPIRIN 81 MG TAB.CHEW PO SCH (08:16)
[2023-05-16] MEDS: OMEPRAZOLE 20 MG CAPSULE PO SCH (08:16)
[2023-05-16] MEDS: LEVOTHYROXINE 88 MCG TABLET PO SCH (08:17)
[2023-05-16] MEDS: HEPARIN 5,000 UNIT/ML VIAL SQ SCH (08:17)
[2023-05-16 09:59] LABS: Blood Urea Nitrogen 34 mg/dL (8-23); Calcium 7.7 mg/dL (8.6-10.4); Carbon Dioxide 22 mmol/L (22-30); Chloride 105 mmol/L (96-108); Glomerular Filtration Rate 20; Glucose 97 mg/dL (70-105)
[2023-05-16] MEDS ORDERED: LACTATED RINGERS 1,000 ML IV SCH (10:47)
== END 2023-05-16 13:21 | disposition swing bed (61) | DRG 178 ==
LOC: ED 10:39 → MEDSUR 17:52 → UNDODISIN 05-16 12:08
PROVIDERS: ADMIT Internal Medicine; ATTEND Internal Medicine